=== PATIENT | female | born 1960 | race Caucasian/White ===

== ENCOUNTER 2019-08-19 14:21 | Outpatient (CLI) | payer OTHER, SELFPAY ==
--- NOTE | ~2019-08-19 | MM_ITS ---
EXAMINATION: MM screening zuhair BI w mehdi HISTORY: Screening mammogram TECHNIQUE: Craniocaudal and mediolateral oblique 3-D tomosynthesis images were obtained and synthetic 2-D images were generated. CAD analysis was submitted and interpreted. COMPARISON: 05/31/2018, 05/27/2017, 05/22/2016 bilateral digital screening mammogram examinations 06/11/2018 diagnostic right digital mammogram and limited right breast ultrasound BREAST PARENCHYMAL COMPOSITION: The breasts are heterogeneously dense, which may obscure small masses . FINDINGS: There is no evidence of suspicious mass, calcification, or architectural distortion to sugg est malignancy in either breast. There has been no suspicious interval change. IMPRESSION: 1. No mammographic evidence of malignancy. 2. Recommend routine screening mammography in one year. BI-RADS Category 1: Negative Reviewed, dictated and finalized at location A.
== END 2019-08-19 14:22 | disposition home or self-care (01) ==
LOC: ANHIMG 14:24
PROVIDERS: PCP Internal Medicine; Visit Provider Obstetrics & Gynecology
DX: Z12.31 Encounter for screening mammogram for malignant neoplasm of breast (principal)
CPT/HCPCS: 77063; 77067

== ENCOUNTER 2020-04-04 08:34 | Outpatient (NON) | payer OTHER, SELFPAY ==
[2020-04-04 21:57] LABS: SARS-CoV-2 RNA PCR Positive
== END 2020-04-04 08:35 ==
LOC: ANHCOVIDDT 08:35
PROVIDERS: Family Provider Internal Medicine; PCP Internal Medicine; Visit Provider Internal Medicine
DX: U07.1 COVID-19 (principal)
CPT/HCPCS: C9803; U0003; U0005

== ENCOUNTER 2020-09-18 16:02 | Outpatient (CLI) | payer OTHER, SELFPAY ==
--- NOTE | ~2020-09-18 | MM_ITS ---
EXAMINATION: MM screening zuhair BI w mehdi HISTORY: Screening mammogram, family history of breast cancer in her mother. TECHNIQUE: Craniocaudal and mediolateral oblique 3-D tomosynthesis images were obtained and synthetic 2-D images were generated. CAD analysis was submitted and interpreted. COMPARISON: 08/19/2019, 06/11/2018, 05/31/2018, 05/27/2017 BREAST PARENCHYMAL COMPOSITION: The breasts are heterogeneously dense, which may obscure small masses . FINDINGS: There is no evidence of suspicious mass, calcification, or architectural distortion to sugg est malignancy in either breast. There has been no suspicious interval change. IMPRESSION: 1. No mammographic evidence of malignancy. 2. Recommend routine screening mammography in one year. BI-RADS Category 1: Negative Reviewed, dictated and finalized at location A.
== END 2020-09-18 16:03 | disposition home or self-care (01) ==
LOC: ANHIMG 16:04
PROVIDERS: PCP Internal Medicine; Visit Provider Obstetrics & Gynecology
DX: Z12.31 Encounter for screening mammogram for malignant neoplasm of breast (principal)
CPT/HCPCS: 77063; 77067

== ENCOUNTER → 2021-02-27 02:51 | Outpatient (CLI) | payer OTHER, SELFPAY ==
[2021-02-27 18:29] LABS: SARS-CoV-2 RNA PCR Negative
== END ==
PROVIDERS: PCP Internal Medicine; Visit Provider Internal Medicine
DX: R68.89 Other general symptoms and signs (principal); Z20.822 Contact with and (suspected) exposure to COVID-19
CPT/HCPCS: C9803; U0003; U0005

== ENCOUNTER 2021-10-18 14:40 | Outpatient (CLI) | payer OTHER, SELFPAY ==
--- NOTE | ~2021-10-18 | MM_ITS ---
EXAMINATION: MM screening zuhair BI w mehdi HISTORY: Screening TECHNIQUE: Craniocaudal and mediolateral oblique 3-D tomosynthesis images were obtained and synthetic 2-D images were generated. CAD analysis was submitted and interpreted. COMPARISON: Comparison to multiple prior studies sequentially, with oldest reviewed study dated 11/2016. BREAST PARENCHYMAL COMPOSITION: The breasts are heterogeneously dense, which may obscure small masses . FINDINGS: There is no evidence of suspicious mass, calcification, or architectural distortion to sugg est malignancy in either breast. There has been no suspicious interval change. IMPRESSION: 1. No mammographic evidence of malignancy. 2. Recommend routine screening mammography in one year. BI-RADS Category 1: Negative Reviewed, dictated and finalized at location A.
== END 2021-10-18 14:41 | disposition home or self-care (01) ==
LOC: ANHIMG 14:42
PROVIDERS: PCP Internal Medicine; Visit Provider Obstetrics & Gynecology
DX: Z12.31 Encounter for screening mammogram for malignant neoplasm of breast (principal)
CPT/HCPCS: 77063; 77067

== ENCOUNTER 2023-01-12 14:55 | Outpatient (CLI) | payer OTHER, SELFPAY ==
--- NOTE | ~2023-01-12 | MM_ITS ---
EXAMINATION: MM screening zuhair BI w mehdi HISTORY: Screening mammogram, family history of breast cancer in her mother. TECHNIQUE: Craniocaudal and mediolateral oblique 3-D tomosynthesis images were obtained and synthetic 2-D images were generated. CAD analysis was submitted and interpreted. COMPARISON: 10/18/2021, 09/18/2020, 08/19/2019 BREAST PARENCHYMAL COMPOSITION: The breasts are heterogeneously dense, which may obscure small masses . FINDINGS: No suspicious mass, calcification, or architectural distortion are identified in either carlos ast to suggest malignancy. There has been no suspicious interval change. IMPRESSION: 1. No mammographic evidence of malignancy. 2. Recommend routine screening mammography in one year. BI-RADS Category 1: Negative Reviewed, dictated and finalized at location A.
== END 2023-01-12 14:56 | disposition home or self-care (01) ==
LOC: ANHIMG 14:57
PROVIDERS: PCP Family Medicine; Visit Provider Obstetrics & Gynecology
DX: Z12.31 Encounter for screening mammogram for malignant neoplasm of breast (principal)
CPT/HCPCS: 77063; 77067

== ENCOUNTER 2023-05-12 17:34 | Emergency (ER) | payer OTHER, SELFPAY ==
--- NOTE | ~2023-05-12 | XR_ITS ---
EXAMINATION: XR chest 2V Exam Date/Time: 05/12/2023 17:53 SET UP MECHANIC COIL WINDING MACHINES HISTORY: chest pain Comparison: None. RESULT: Lines, tubes, and devices: None. Lungs and pleura: Clear. Granulomatous calcifications. Cardiomediastinal silhouette: Stable. Calcified nodes. Other: No acute osseous or upper abdominal finding. IMPRESSION: No acute cardiopulmonary process. Reviewed, dictated and finalized at location K. UP MECHANIC COIL WINDING MACHINES
--- NOTE | 2023-05-12 17:34 | ECG_ITS ---
Measurements Intervals [place] Rate: 73 P: 43 NH: 147 QRS: 53 QRSD: 89 T: 1 QT: 369 QTc: 408 Interpretive Statements SINUS RHYTHM POSSIBLE LEFT ATRIAL ENLARGEMENT [-0.1mV P WAVE IN V1/V2] LOW QRS VOLTAGE IN PRECORDIAL LEADS [QRS DEFLECTION < 1.0 mV IN CHEST LEADS] NONSPECIFIC T-WAVE ABNORMALITY NO PREVIOUS ECG AVAILABLE FOR COMPARISON Electronically Signed On 05-13-2023 16:21:50 SEWER DIGGER by Jelena Ochoa M.D.
[2023-05-12 17:40] VITALS: BP 140/73; PULSE 81; RESP 18; TEMP 36.8; O2SAT 100
[2023-05-12 18:10] LABS: Basophils Percent Auto 0.5 % (0.2-1.2); Eosinophils Absolute Auto 0.2 K/mm3 (0-0.3); Eosinophils Percent Auto 2.9 % (0-4.4); Hematocrit 44.8 % (37.0-47.0); Hemoglobin 13.6 g/dL (12.0-15.0); Immature Granulocyte Absolute 0.02 K/mm3 (0.00-0.031); Immature Granulocyte Percent A 0.3 % (0-0.5); Lymphocytes Absolute Auto 2.78 K/mm3 (0.9-3.2); Lymphocytes Percent Auto 47.4 % (18.3-44.2); Mean Corpuscular HGB Conc 30.4 g/dl (32-36); Mean Corpuscular Hemoglobin 29.8 pg (26-34); Mean Corpuscular Volume 98.2 fl (80-100); Mean Platelet Volume 9.1 fl (7.4-10.4); Monocytes Absolute Auto 0.5 K/mm3 (0.1-0.6); Monocytes Percent Auto 7.7 % (2.6-8.5); Neutrophils Absolute Auto 2.4 K/mm3 (1.3-6.7); Neutrophils Percent Auto 41.2 % (45.5-73.1); Platelet Count Result 247 k/mm3 (150-375); Red Blood Count 4.56 M/mm3 (4.2-5.4); Red Cell Distribution Width 13.1 % (11.5-14.5); White Blood Count 5.9 K/mm3 (4.5-10.0)
[2023-05-12 18:23] LABS: Alanine Aminotransferase 20 U/L (6-35); Albumin Level 4.9 g/dL (3.5-5.1); Alkaline Phosphatase 64 U/L (38-126); Anion Gap 10 mmol/L (8-16); Aspartate Amino Transferase 27 U/L (14-36); Bilirubin,Total 0.4 mg/dL (0.2-1.3); Blood Urea Nitrogen 20 mg/dL (7-17); Carbon Dioxide 25 mmol/L (22-30); Chloride 104 mmol/L (98-107); Estimated CRCL calculation 73 ml/min; Estimated Glomerular Filt Rate > 60; Glucose 90 mg/dL (65-110); Lipase 72 U/L (23-300); Potassium 3.7 mmol/L (3.4-5.0); Sodium 139 mmol/L (137-145)
[2023-05-12 18:34] LABS: Troponin I < 0.012 ng/mL (0.000-0.034)
[2023-05-12] MEDS: ASPIRIN 81 MG CHEWABLE TABLET 324 MG PO (18:49)
[2023-05-12 18:53] LABS: INR 0.9; Prothrombin Time 11.9 Seconds (11.1-14.7)
[2023-05-12 18:54] LABS: Partial Thromboplastin Time 26.4 SECONDS (22.3-36.8)
[2023-05-12 18:55] VITALS: BP 95/64; PULSE 71; RESP 14; O2SAT 98
[2023-05-12 19:17] VITALS: BP 100/61; PULSE 65; PULSE 67; RESP 15; TEMP 36.4; O2SAT 100
[2023-05-12] MEDS: BELLADONNA ALK/PHENOB ELIX 10 ML, MAG HYDROX/ALUMINUM HYD/SIMETH 30 ML, LIDOCAINE HCL 2... PO (19:29)
--- NOTE | 2023-05-12 20:12 | ECG_ITS ---
Measurements Intervals [place] Rate: 55 P: 49 CA: 147 QRS: 57 QRSD: 92 T: 29 QT: 396 QTc: 380 Interpretive Statements SINUS BRADYCARDIA LOW QRS VOLTAGE IN PRECORDIAL LEADS [QRS DEFLECTION < 1.0 mV IN CHEST LEADS] COMPARED TO ECG 05/12/2023 17:38:12 SINUS BRADYCARDIA NOW PRESENT Electronically Signed On 05-13-2023 16:26:00 SAND CASTER APPRENTICE by Jelena Ochoa M.D.
[2023-05-12 20:53] LABS: Troponin I < 0.012 ng/mL (0.000-0.034)
[2023-05-12 20:56] VITALS: BP 111/71; PULSE 60; RESP 16; O2SAT 99
--- NOTE | 2023-05-12 21:00 | ED.GENADULT ---
HPI - General Adult General Chief complaint: Chest Pain Stated complaint: tightness in chest Time Seen by Provider: 05/12/23 19:10 History of Present Illness HPI narrative: Patient is 61-year-old female who presents emergency department with chief complaint of chest pain patient reports that she went out had lunch today at a restaurant [place] and reports that afterwards few hours later started having some discomfort in her epigastric area the patient states she got sweaty afterwards reports no pain radiating to her arm denies shortness of breath. The patient reports she has prior history of hyperlipidemia reports no prior history of cardiac disease Related Data Home Medications Medication Instructions Recorded Confirmed estradiol-norethindrone acet 0.5 1 tablet PO DAILY 09/01/19 05/12/23 mg-0.1 mg tablet rosuvastatin 10 mg tablet (Crestor) 10 mg PO DAILY 05/12/23 05/12/23 Allergies Allergy/AdvReac Type Severity Reaction Status Date / Time moxifloxacin AdvReac Severe C-DIFF Verified 05/12/23 17:41 Review of Systems Review of Systems: A 10 system review of systems was completed on the patient and is negative except for what is stated in the HPI. Nursing and ancillary documentation was reviewed. PMFSH Past Medical History Medical History DJD (degenerative joint disease) Surgical History Surgical History H/O section H/O colonoscopy Social History Social History Smoking status: Never smoker Second hand tobacco smoke exposure: Yes Alcohol intake: current Alcohol use details: Social Substance use: never Substance use type: does not use Lack of Transportation: No Lack of Food: Never True Current Housing: I Have Housing Concerned About Future Housing: No Difficulty Paying Gas/Electric Bills: No Difficulty Paying for Meds: No Currently Unemployed: No Education: High School Diploma/GED Difficulty w/ Childcare or Family Care: No Exam Narrative: GENERAL: Well-appearing, well-nourished, and in no acute distress. HEAD: Normocephalic, atraumatic. EYES: PERRLA and EOMI. ENT: Nares clear, no rhinorrhea or epistaxis. Mucous membranes moist. NECK: Supple. CHEST: Clear to auscultation. No respiratory distress. HEART: Regular rate and rhythm. No murmur heard. Normal peripheral pulses. ABDOMEN: Soft, nontender, nondistended, normal active bowel sounds. EXTREMITIES: Normal range of motion. No edema. SKIN: Warm, dry, no rash. NEURO: No focal deficits. Alert and oriented x3. PSYCH: Normal mood and affect. Course Vital Signs Vital signs: Vital Signs Temperature 36.8 C 05/12/23 17:40 Pulse Rate 81 05/12/23 17:40 Respiratory Rate 18 05/12/23 17:40 Blood Pressure 140/73 05/12/23 17:40 Pulse Oximetry 100 05/12/23 17:40 Temperature 36.4 C 05/12/23 19:17 Pulse Rate 60 05/12/23 20:56 Respiratory Rate 16 05/12/23 20:56 Blood Pressure 111/71 05/12/23 20:56 Pulse Oximetry 99 05/12/23 20:56 Oxygen Delivery Room Air 05/12/23 18:55 Medical Decision Making MDM Narrative Medical decision making narrative: Differential diagnosis includes ACS, gastroesophageal reflux disease, noncardiac chest pain, pneumothorax, EKG showed no acute abnormality Initial troponin was -3 hour delta troponin was negative. The patient's pains are the wound on the time of evaluation. Vital Signs Vital Signs: Vital Signs Temperature 36.8 C 05/12/23 17:40 Pulse Rate 81 05/12/23 17:40 Respiratory Rate 18 05/12/23 17:40 Blood Pressure 140/73 05/12/23 17:40 Pulse Oximetry 100 05/12/23 17:40 Temperature 36.4 C 05/12/23 19:17 Pulse Rate 60 05/12/23 20:56 Respiratory Rate 16 05/12/23 20:56 Blood Pressure 111/71 05/12/23 20:56 P
== END 2023-05-12 21:26 | disposition home or self-care (01) ==
PROVIDERS: Emergency Medicine; Emergency Provider Emergency Medicine; PCP Family Medicine
DX: R07.89 Other chest pain (principal); R94.31 Abnormal electrocardiogram [ECG] [EKG]; R00.1 Bradycardia, unspecified
CPT/HCPCS: 36415; 71046; 80053; 83690; 84484; 85025; 85610; 85730; 93005; 99284; A9270

== ENCOUNTER 2023-06-11 08:44 | Outpatient (CLI) | payer OTHER, SELFPAY ==
--- NOTE | 2023-06-11 08:47 | EST_ITS ---
Patient Info Name: Tanya Nguyen Age: 63 years : 1960 Gender: Female Ht: 64 in Wt: 176 lbs BSA: 1.92 m2 HR: 133 bpm BP: 123 / 64 mmHg Heart Rhythm: Tachycardia Technical Quality: Fair Exam Date: 06/11/2023 9:06 AM Exam Location: Echo Lab Exam Room: [facility]ESS [facility] Patient Status: Outpatient Admit Date: 06/11/2023 Staff Ordering Physician: Michael Yoo APRN Grinder Set Up Operator Thread: Maria Esther Daniels RDCS Attending Provider: DR. PATEL Referring Physician: Fredo BRODY; Exercise Technologist: Lorena Silverman CT Exercise Physician: Darren Patel DO Exam Type: CA stress echo Study Info Indications R07.89 - Other chest pain Treadmill exercise stress echocardiogram is performed. Summary 1. 1. Negative Jayden exercise stress test for ischemic ST changes by ECG criteria. 2. 2. Good functional capacity, achieving 7 METs of workload. 3. 3. Appropriate HR response to exercise. 4. 4. Appropriate HR recovery at 1 minute post exercise. 5. 5. Negative stress echocardiogram for ischemia by wall motion analysis. 6. 6. Patient informed of the above results. Stress Echo Findings Left Ventricle Appropriate increase in LV endocaridal thickening with systole. Appropriate augmentation of contractility with systole. No wall motion abnormality. Left Ventricle Normal LV systolic function, no wall motion abnormality. Protocol: Jayden Stress ECG Details Stage: REST Duration (min): 1 min : 8 sec Speed (mph): 0.0 Grade (%): 0 HR (bpm): 61 SBP (mmHg): 123 DBP (mmHg): 64 METS: --- Stage: REST Duration (min): 1 min : 24 sec Speed (mph): 0.0 Grade (%): 0 HR (bpm): 65 SBP (mmHg): 123 DBP (mmHg): 64 METS: --- Stage: REST Duration (min): 18 min : 9 sec Speed (mph): 0.0 Grade (%): 0 HR (bpm): 74 SBP (mmHg): 123 DBP (mmHg): 64 METS: --- Stage: STAGE 1 Duration (min): 1 min : 0 sec Speed (mph): 1.7 Grade (%): 10 HR (bpm): 99 SBP (mmHg): 123 DBP (mmHg): 64 METS: --- Stage: STAGE 1 Duration (min): 2 min : 0 sec Speed (mph): 1.7 Grade (%): 10 HR (bpm): 121 SBP (mmHg): 123 DBP (mmHg): 64 METS: --- Stage: STAGE 1 Duration (min): 3 min : 0 sec Speed (mph): 1.7 Grade (%): 10 HR (bpm): 123 SBP (mmHg): 143 DBP (mmHg): 79 METS: --- Stage: STAGE 2 Duration (min): 1 min : 0 sec Speed (mph): 2.5 Grade (%): 12 HR (bpm): 131 SBP (mmHg): 143 DBP (mmHg): 79 METS: --- Stage: STAGE 2 Duration (min): 2 min : 0 sec Speed (mph): 2.5 Grade (%): 12 HR (bpm): 142 SBP (mmHg): 166 DBP (mmHg): 87 METS: --- Stage: STAGE 2 Duration (min): 3 min : 0 sec Speed (mph): 2.5 Grade (%): 12 HR (bpm): 147 SBP (mmHg): 166 DBP (mmHg): 87 METS: --- Stage: STAGE 3 Duration (min): 0 min : 1 sec Speed (mph): 0.0 Grade (%): 0 HR (bpm): 147 SBP (mmHg): 166 DBP (mmHg): 87 METS: --- Stage: RECOVERY Duration (min): 0 min : 58 sec Speed (mph): 0.0 Grade (%): 0 HR (bpm): 109 SBP (mmHg): 171
== END 2023-06-11 08:45 | disposition home or self-care (01) ==
PROVIDERS: PCP Nurse Practitioner; Visit Provider Nurse Practitioner
DX: R07.89 Other chest pain (principal)
CPT/HCPCS: 93351

== ENCOUNTER 2023-10-22 16:45 | Outpatient (CLI) | payer OTHER, SELFPAY ==
--- NOTE | ~2023-10-22 | XR_ITS ---
Left Knee Technique: AP, lateral, and oblique views were obtained. Clinical History: Pain Findings: No fracture or dislocation is seen. Osseous alignment is anatomic. Joint spaces are preserv ed without degenerative or erosive change. There is mild chondrocalcinosis of the menisci. No joint e ffusion is seen. Impression: Mild chondrocalcinosis of the menisci. Reviewed, dictated and finalized at location M. Impression: Mild chondrocalcinosis of the menisci.
== END 2023-10-22 16:46 | disposition home or self-care (01) ==
LOC: ANHIMG 16:46
PROVIDERS: PCP Nurse Practitioner; Visit Provider Internal Medicine
DX: M25.562 Pain in left knee (principal)
CPT/HCPCS: 73562

== ENCOUNTER 2024-01-14 08:51 | Outpatient (CLI) | payer OTHER, SELFPAY ==
--- NOTE | ~2024-01-14 | MM_ITS ---
EXAMINATION: MM screening zuhair BI w mehdi HISTORY: Screening mammogram, family history of breast cancer in her mother. TECHNIQUE: Craniocaudal and mediolateral oblique 3-D tomosynthesis images were obtained and synthetic 2-D images were generated. CAD analysis was submitted and interpreted. COMPARISON: 01/12/2023, 10/18/2021, 09/18/2020 BREAST PARENCHYMAL COMPOSITION:Dense: The breasts are heterogeneously dense, which may obscure small masses. FINDINGS: No suspicious mass, calcification, or architectural distortion are identified in either carlos ast to suggest malignancy. There has been no suspicious interval change. IMPRESSION: No mammographic evidence of malignancy. Recommend routine screening mammography in one year. BI-RADS Category 1: Negative Reviewed, dictated and finalized at location .
== END 2024-01-14 08:52 | disposition home or self-care (01) ==
LOC: ANHIMG 08:52
PROVIDERS: PCP Nurse Practitioner; Visit Provider Obstetrics & Gynecology
DX: Z12.31 Encounter for screening mammogram for malignant neoplasm of breast (principal)
CPT/HCPCS: 77063; 77067

== ENCOUNTER 2024-07-15 12:03 | Outpatient (CLI) | payer OTHER, SELFPAY ==
--- NOTE | ~2024-07-15 | MMUS_ITS ---
EXAMINATION: MM diagnostic zuhair BI w mehdi, US breast LT limited HISTORY: Palpable left breast abnormality TECHNIQUE: Additional 3-D tomosynthesis images of the breasts were performed and synthetic 2-D images were generated. CAD analysis was submitted and interpreted. High resolution Limited left breast ultr asound was performed. COMPARISON: Comparison to multiple prior studies sequentially, with oldest reviewed study dated 06/11. BREAST PARENCHYMAL COMPOSITION: Dense: The breasts are heterogeneously dense, which may obscure small masses FINDINGS: MAMMOGRAPHIC FINDINGS: The right breast is stable without evidence for malignancy. There is a new irregular shaped mass with spiculated margins in the lower outer quadrant of the left breast, posterior third. There are associ ated pleomorphic calcifications. This corresponds the area of palpable concern. Additionally, there a re new enlarged lymph nodes in the left axilla at least one of which contains punctate calcifications . ULTRASOUND: Limited left breast ultrasound: At 5:00, 4 cm from the nipple is an irregular shaped hypoechoic mass with irregular margins, internal vascularity and mixed posterior attenuation. This mass measures 2.3 x 2 x 1.7 cm. There is an adjacent satellite nodule which is slightly irregular, oval shaped measurin g 8 mm. IMPRESSION: 1. New abnormal left breast mass with spiculated margins in the lower outer quadrant of the left semaj st posteriorly with associated pleomorphic calcifications. There is a corresponding 2.3 cm hypoechoic mass by ultrasound with adjacent 8 mm satellite nodule. Additionally, there is new lymphadenopathy o f the left axilla with at least one of the lymph nodes containing internal punctate calcifications. 2. Recommendation: Ultrasound-guided left breast biopsy recommended. Left axillary lymph node biopsy recommended. BI-RADS category 5, highly suggestive of malignancy. Reviewed, dictated and finalized at location A. IMPRESSION: 1. New abnormal left breast mass with spiculated margins in the lower outer ned drant of the left breast posteriorly with associated pleomorphic calcifications . There is a corresponding 2.3 cm hypoechoic mass by ultrasound with adjacent 8 mm satellite nodule. Additionally, there is new lymphadenopathy of the left ax illa with at least one of the lymph nodes containing internal punctate calcific ations. 2. Recommendation: Ultrasound-guided left breast biopsy recommended. Left axill franny lymph node biopsy recommended. BI-RADS category 5, highly suggestive of malignancy.
--- OUTSIDE RECORDS SUMMARY | 2024-07-16 13:02 | XMS_ITS | Clinical Summary ---
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 Gender Identity Not on file Sexual Orientation Not on file Plan of Treatment Health Maintenance Due Date Last Done Comments Hepatitis C Virus (HCV) Screening 1960 TdaP Immunization 1961 Pap Smear 1982 Cervical Cancer Screening (CCS) 1991 HPV/Cotest 1991 Colonoscopy 2006 Colorectal Cancer Screening 2006 Hepatitis B Immunization (3 of 3 - 19+ 3-dose series) 11/09/2007 07/02/2007, 05/11/2007 Cologuard 2011 Immunochemical Fecal Occult Blood 2011 Mammogram 2011 Pneumococcal Immunization (50+ years) (1 of 1 - PCV) 2011 Zoster Immunization (1 of 2) 2011 Influenza Immunization (#1) 11/15/20230 09/2019, 12/23/2018, 12/17/2017, Additional history exists SARS-COV-2 Immunization ( season) 2023 Respiratory Syncytial Virus (RSV) Immunization (Adult) (1 - 1-dose 75+ series) 02/13/2036 Meningococcal Immunization (ACWY) Aged Out No longer eligible based on patient's age to complete this topic Pneumococcal Immunization Combined Aged Out No longer eligible based on patient's age to complete this topic Rotavirus Immunization Aged Out No lo nger eligible based on patient's age to complete this topic
--- OUTSIDE RECORDS SUMMARY | 2024-07-16 13:02 | XMS_ITS | Encounter Summary ---
Author Organization [facility] Address [address] [place] [address] Care Team Providers Care Wheel Borer Name Role Phone Walter Husain MD Primary Care Provider [phone] Encounter Details Date Type Department Care Team (Late st Contact Info) Description 10/27/2017 Lab Requisition [facility] [address] [facility] [facility] [place] [address] Alisa Bell MD [address] [facility] [address] [place] [address] Social History Tobacco Use Types Packs/Day Years Used Date Smoking Tobacco: Never Assessed Comments Unknown Sex and Gender Information Value Date Recorded Sex Assigned at Not on file 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 Gender Identity Not on file Sexual Orientation Not on file documented as of this encounter Plan of Treatment Not on file documented as of this encounter Procedures Procedure Name Priority Date/Time Associated Diagnosis Comments DERMATOPATH TECHNICAL REPORT Routine 10/26/2017 12:00 AM CDT documented in this encounter Results * DERMATOPATH TECHNICAL REPORT (10/26/2017 12:00 AM CDT) Case Report Dermatopathology Report Case: [id number] Authorizing Provider: Alisa Bell MD Collected: 10/26/2017 12:00 AM Pathologist: Afia Oseguera MD Received: 10/27/2017 06:58 AM Specimen: Skin, right anterior hairline 10:09 AM CDT DERMATOPATHOLOGY LABORATORY Clinical History R/O nevus, irritated. 10:09 AM T DERMATOPATHOLOGY LABORATORY Gross Description Specimen A: Received is one formalin filled container labeled with the patient's name and designated right anterior hairline. The specimen consists of a shave measuring [id number]. Jar 0. [facility] Dermatopathology Laboratory performed the technical component only. 10:09 AM CDT DERMATOPATHOLOGY LABORATORY Embedded Images 10:09 AM T DERMATOPATHOLOGY LABORATORY DISCLAIMER An external and internal positive and negative controls are appropriate for the histochemical, immunohistochemical and immunofluorescence stain(s) in this case (if any), except where stated explicitly. The performance characteristics of the stain(s) cited in this report were developed and its performance characteristic determined by the Dermatopathology Laboratory at [facility]. These tests need not be, and therefore are not, approved by the [place] Food and Drug Administration. The tests are used for clinical purposes. 10:09 AM [facility] DERMATOPATHOLOGY LABORATORY Pathology/Cytolog y TISSUE SPECIMEN FROM SKIN / Unknown 10/26/2017 10/27/2017 6:58 AM CDT Alisa Bell MD LAB - PATHOLOGY/CYTOLOGY OR DERABLES Final Result DERMATOPATHOLOGY LABORATORY [facility] - Department of Dermatology [address] [place] [address], 5th Floor Lab [address] [phone] documented in this encounter Visit Diagnoses Not on filedocumented in this encounter Care Teams Wheel Borer Relationship Specialty Start Date End Date Walter Husain MD [address] [place] [id number] PCP - General Internal Medicine 12/03/16 documented as of this encounter
--- OUTSIDE RECORDS SUMMARY | 2024-07-16 13:02 | XMS_ITS | Clinical Summary ---
Author Organization [facility] Address [address] [place] [address] Care Team Providers Care Manager Operations And Procurement Name Role Phone Walter Husain MD Primary Care Provider [phone] Source Comments [facility],non-owned Affiliates and Associated Physician Practices is amultiple site organization consisting of ambulatory clinics and hospital sitesin [place], [place], [place] and [place]. This disclosure is being madepursuant to the Care Everywhere program and may not contain all information available regarding this patient. Last updated 17.[facility] Allergies No known active allergies Immunizations Immunization Administration Dates Next Due INFLUENZA VACCINE, QUADR. 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 Gender Identity Not on file Sexual Orientation Not on file Plan of Treatment Health Maintenance Due Date Last Done Comments COLOGUARD (AGES 45-75) - COL ON CA SCREENING 1961 COLON MONITORING 1961 COLONOSCOPY - COLON CA SCREENING 1961 CT COLONOGRAPHY - COLON CA SCREENING 1961 Colorectal Cancer Screening 1961 FIT - COLON CA SCREENING 1961 FLEX SIG - COLON CA SCREENING 1961 LIPID TESTING 1961 MAMMOGRAM 1961 HIV SCREENING 02/13/1976 HEPATITIS C SCREENING 02/08/1979 DTAP/TDAP/TD VACCINES (1 - Tdap) 02/13/1980 PNEUMOCOCCAL VACCINE 50+ (1 of 1 - PCV) 2011 ZOSTER VACCINE (1 of 2) 2011 COVID-19 VACCINE (1 - 2023-2 5 season) 2023 DEPRESSION SCREENING 03/16/2024 INFLUENZA VACCINE (Season Ended) 2024 12/04/19 17 Respiratory Syncytial Virus (RSV) Vaccine Pt: or over 60 yrs (1 - 1-dose 75+ series) 02/13/2036 HEPATITIS B VACCINE Aged Out No longe r eligible based on patient's age to complete this topic HIB VACCINE Aged Out No longer eligi ble based on patient's age to complete this topic HPV VACCINE Aged Out No longer eligi ble based on patient's age to complete this topic MENINGOCOCCAL (Group B) VACC INE SHARED DECISION-MAKING Aged Out No longer eligibl e based on patient's age to complete this topic MENINGOCOCCAL GROUPS A/C/Y/W VACCINE Aged Out No longer eligible b ased on patient's age to complete this topic Insurance [employer] [facility] Address: [facility] [id number] [place] [address] [employer] [facility] [place] [place]: [address] [address] [facility] Address: [address] [address] Care Teams Manager Operations And Procurement Relationship Specialty Start Date End Date Walter Husain MD [address] [place] [phone] PCP - General Internal Medicine 12/03/16
--- OUTSIDE RECORDS SUMMARY | 2024-07-16 13:02 | XMS_ITS | Encounter Summary ---
Author Organization [facility] Address [address] [facility] [place] [address] Care Team Providers Care Forms Analysis Manager Name Role Phone Walter Husain MD Primary Care Provider [phone] Encounter Details Date Type Department Care Team (Late st Contact Info) Description 12/22/2018 Lab Requisition [facility] Lab [address] [facility], [facility] [place] [address] Alisa Bell MD [address] 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 Gender Identity Not on file Sexual Orientation Not on file documented as of this encounter Plan of Treatment Not on file documented as of this encounter Procedures Procedure Name Priority Date/Time Associated Diagnosis Comments DERMATOPATHOLOGY Routine 12/21/2018 12:0 0 AM CDT documented in this encounter Results * DERMATOPATHOLOGY (12/21/2018 12:00 AM CDT) Case Report Dermatopathology Report Case: [id number] Authorizing Provider: Alisa Bell MD Collected: 12/21/2018 12:00 AM Ordering Location: [facility] Received: 12/22/2018 06:56 AM Pathologist: Robert Peters MD Specimen: Skin, mid back 4:37 PM CDT DERMATOPATHOLOGY LABORATORY Final Diagnosis Specimen A. SKIN, mid back: EPIDERMOID CYST (L72.0) 4:37 PM CDT DERMATOPATHOLOGY LABORATORY Clinical History R/O cyst, irritated. 4:37 PM CDT DERMATOPATHOLOGY LABORATORY Gross Description Specimen A: Received is one formalin filled container labeled with the patient's name and designated mid back. The specimen consists of a [id number] excision, bisected. Jar 0. 4:37 PM CDT DERMATOPATHOLOGY LABORATORY Microscopic Description Specimen A. SKIN, mid back: Within the dermis, there is a space lined by epithelium that resembles normal epidermis and the infundibular portion of the hair follicle. 4:37 PM CDT DERMATOPATHOLOGY LABORATORY Disclaimer An external and internal positive and negative controls are appropriate for the histochemical, immunohistochemical and immunofluorescence stain(s) in this case (if any), except where stated explicitly. The performance characteristics of the stain(s) cited in this report were developed and its performance characteristic determined by the Dermatopathology Laboratory at [facility], directed by Dr. Goldie Peters. These tests need not be, and therefore are not, approved by the [place] Food and Drug Administration. The tests are used for clinical purposes. Billing Codes Specimen Charges Stain Charges 68701 1 4:37 PM CDT DERMATOPATHOLOGY LABORATORY Embedded Images 4:37 PM CDT DERMATOPATHOLOGY LABORATORY Pathology/Cytolog y TISSUE SPECIMEN FROM SKIN / Unknown 12/21/2018 12/22/2018 6:56 AM CDT Alisa Bell MD LAB - PATHOLOGY/CYTOLOGY OR DERABLES Final Result DERMATOPATHOLOGY LABORATORY [facility] - Department of Dermatology [address] [place] [address], [address]th [address] [phone] documented in this encounter Visit Diagnoses Not on filedocumented in this encounter Care Teams Forms Analysis Manager Relationship Specialty Start Date End Date Walter Husain MD [address] [place] [address] PCP - General Internal Medicine 12/03/16 documented as of this encounter
== END 2024-07-15 12:04 | disposition home or self-care (01) ==
LOC: ANHIMG 12:06
PROVIDERS: PCP Internal Medicine; Visit Provider Obstetrics & Gynecology
DX: R92.8 Other abnormal and inconclusive findings on diagnostic imaging of breast (principal)
CPT/HCPCS: 76642; 77062; 77066; G0279

== ENCOUNTER 2024-08-05 07:41 | Outpatient (CLI) | payer OTHER, SELFPAY ==
--- NOTE | ~2024-08-05 | MMUS_ITS ---
US breast biopsy LT w image, MM post biopsy diagnostic LT, US_BXSTAXLIMG_US EXAMINATION: US GUIDED NEEDLE BIOPSY WITH VACUUM ASSISTANCE DATE: 08/05/2024 10:55 CDT INDICATION: Abnormal left breast mass seen. Enlarged left axillary lymph nodes. Ultrasound-guided co re biopsy is requested to evaluate for malignancy. BREAST PARENCHYMAL COMPOSITION: Dense: The breasts are heterogeneously dense, which may obscure small masses TECHNIQUE AND FINDINGS: The risks and potential benefits of the procedure were discussed with the patient, and written inform ed consent was obtained. After sterile preparation of the left breast, 1% lidocaine was utilized for local anesthesia. 1% lidocaine with epinephrine was used for deep anesthesia. Left breast: A 10G vacuum-assisted biopsy gun needle was advanced through to the outer edge of the re gion of interest from a inferiorly approach utilizing sonographic guidance. A total of 4 tissue core samples were obtained through the lesion. An Inrad tissue marker clip was then placed at the biopsy site. Hemostasis was achieved. Left axilla: A 10G vacuum-assisted biopsy gun needle was advanced through to the outer edge of the re gion of interest from an axillary approach utilizing sonographic guidance. A total of three tissue c ore samples were obtained through the lesion. An Inrad tissue marker clip was then placed at the bio psy site. Hemostasis was achieved. The patient tolerated procedure well and there was no evidence of immediate complication. The patien t was given verbal instructions partly is from the department. Left breast mammograms to document ti ssue marker clip placement. The tissue samples were submitted to surgical pathology for histologic an alysis. IMPRESSION: 1. Successful ultrasound-guided vacuum-assisted biopsy of left breast and axillary masses with post procedure mammogram for marker placement. Please refer to pathology report for histologic analysis. Reviewed, dictated and finalized at location B. IMPRESSION: 1. Successful ultrasound-guided vacuum-assisted biopsy of left breast and axil usman masses with post procedure mammogram for marker placement. Please refer to pathology report for histologic analysis. IMPRESSION: 1. Successful ultrasound-guided vacuum-assisted biopsy of left breast and axil usman masses with post procedure mammogram for marker placement. Please refer to pathology report for histologic analysis.
--- OUTSIDE RECORDS SUMMARY | 2024-08-05 07:46 | XMS_ITS | Clinical Summary ---
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
--- OUTSIDE RECORDS SUMMARY | 2024-08-05 07:46 | XMS_ITS | Encounter Summary ---
Author Organization [facility] Address [address] [facility] [place] [address] Care Team Providers Care Product Test Specialist Name Role Phone Walter Husain MD Primary Care Provider [phone] Encounter Details Date Type Department Care Team (Late st Contact Info) Description 10/27/2017 Lab Requisition [facility] [address] [facility], [place] [address] Alisa Bell MD [address] [facility] 3 [place] [address] Social History Tobacco Use Types Packs/Day Years Used Date Smoking Tobacco: Never Assessed Comments Unknown Sex and Gender Information Value Date Recorded Sex Assigned at Not on file 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 Gender Identity Not on file Sexual Orientation Not on file documented as of this encounter Plan of Treatment Not on file documented as of this encounter Procedures Procedure Name Priority Date/Time Associated Diagnosis Comments DERMATOPATH TECHNICAL REPORT Routine 10/26/2017 12:00 AM CDT documented in this encounter Results * DERMATOPATH TECHNICAL REPORT (10/26/2017 12:00 AM CDT) Case Report Dermatopathology Report Case: [id number] Authorizing Provider: Alisa Bell MD Collected: 10/26/2017 12:00 AM Pathologist: Afia Oseguera MD Received: 10/27/2017 06:58 AM Specimen: Skin, right anterior hairline 10:09 AM CDT DERMATOPATHOLOGY LABORATORY Clinical History R/O nevus, irritated. 10:09 AM CDT DERMATOPATHOLOGY LABORATORY Gross Description Specimen A: Received is one formalin filled container labeled with the patient's name and designated right anterior hairline. The specimen consists of a shave measuring [id number]. Jar 0. [facility] Dermatopathology Laboratory performed the technical component only. 10:09 AM CDT DERMATOPATHOLOGY LABORATORY Embedded Images 10:09 AM CDT DERMATOPATHOLOGY LABORATORY DISCLAIMER An external and internal positive and negative controls are appropriate for the histochemical, immunohistochemical and immunofluorescence stain(s) in this case (if any), except where stated explicitly. The performance characteristics of the stain(s) cited in this report were developed and its performance characteristic determined by the Dermatopathology Laboratory at [facility]. These tests need not be, and therefore are not, approved by the [place] Food and Drug Administration. The tests are used for clinical purposes. 10:09 AM T DERMATOPATHOLOGY LABORATORY at 1009 CDT Pathology/Cytolog y TISSUE SPECIMEN FROM SKIN / Unknown 10/26/2017 10/27/2017 6:58 AM CDT Alisa Bell MD LAB - PATHOLOGY/CYTOLOGY OR DERABLES Final Result DERMATOPATHOLOGY LABORATORY [facility] - Department of Dermatology [address] [place] [address], 5th Floor Lab [address] [phone] documented in this encounter Visit Diagnoses Not on filedocumented in this encounter Care Teams Product Test Specialist Relationship Specialty Start Date End Date Walter Husain MD [address] [place] [address] PCP - General Internal Medicine 12/03/16 documented as of this encounter
--- OUTSIDE RECORDS SUMMARY | 2024-08-05 07:46 | XMS_ITS | Clinical Summary ---
Author Organization [facility] Address [address] [facility] [place] [address] Care Team Providers Care Soldering Technician Name Role Phone Walter Husain MD Primary Care Provider [phone] Source Comments [facility],non-owned Affiliates and Associated Physician Practices is amultiple site organization consisting of ambulatory clinics and hospital sitesin [place], [place], [place] and [place]. This disclosure is being madepursuant to the Care Everywhere program and may not contain all information available regarding this patient. Last updated 17.[facility] Allergies No known active allergies Immunizations Immunization Administration Dates Next Due INFLUENZA VACCINE, QUADR. 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
--- OUTSIDE RECORDS SUMMARY | 2024-08-05 07:46 | XMS_ITS | Encounter Summary ---
Author Organization [facility] Address [address] [facility] [place] [address] Care Team Providers Care Roll Shop Supervisor Name Role Phone Walter Husain MD Primary Care Provider Encounter Details Date Type Department Care Team (Late st Contact Info) Description 12/22/2018 Lab Requisition [facility] Lab [address] [facility], [facility] [place] [address] Alisa Bell MD [address] [facility] 3 [place] [address] Social History Tobacco Use Types Packs/Day Years Used Date Smoking Tobacco: Never Assessed Comments Unknown Sex and Gender Information Value Date Recorded Sex Assigned at Not on file 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 Gender Identity Not on file Sexual Orientation Not on file documented as of this encounter Plan of Treatment Not on file documented as of this encounter Procedures Procedure Name Priority Date/Time Associated Diagnosis Comments DERMATOPATHOLOGY Routine 12/21/2018 12:0 0 AM CDT documented in this encounter Results * DERMATOPATHOLOGY (12/21/2018 12:00 AM CDT) Case Report Dermatopathology Report Case: [id number] Authorizing Provider: Alisa Bell MD Collected: 12/21/2018 12:00 AM Ordering Location: [facility] Received: 12/22/2018 06:56 AM Pathologist: Robert Peters MD Specimen: Skin, mid back 4:37 PM CDT DERMATOPATHOLOGY LABORATORY Final Diagnosis Specimen A. SKIN, mid back: EPIDERMOID CYST (L72.0) 4:37 PM CDT DERMATOPATHOLOGY LABORATORY at 1637 CDT Clinical History R/O cyst, irritated. 4:37 PM CDT DERMATOPATHOLOGY LABORATORY Gross Description Specimen A: Received is one formalin filled container labeled with the patient's name and designated mid back. The specimen consists of a [id number] excision, bisected. Jar 0. 4:37 PM CDT [...] by the Dermatopathology Laboratory at [facility], directed by Dr. Goldie Peters. These tests need not be, and therefore are not, approved by the [place] Food and Drug Administration. The tests are used for clinical purposes. Billing Codes Specimen Charges Stain Charges 11438 1 4:37 PM CDT DERMATOPATHOLOGY LABORATORY Embedded Images 4:37 PM CDT DERMATOPATHOLOGY LABORATORY Pathology/Cytolog y TISSUE SPECIMEN FROM SKIN / Unknown 12/21/2018 12/22/2018 6:56 AM CDT Alisa Bell MD LAB - PATHOLOGY/CYTOLOGY OR DERABLES Final Result DERMATOPATHOLOGY LABORATORY [facility] - Department of Dermatology [address] [place] [address], 5th Floor [address] [phone] documented in this encounter Visit Diagnoses Not on filedocumented in this encounter Care Teams Roll Shop Supervisor Relationship Specialty Start Date End Date Walter Husain MD [address] [place] [address] PCP - General Internal Medicine 12/03/16 documented as of this encounter
== END 2024-08-05 07:42 | disposition home or self-care (01) ==
LOC: ANHIMG 07:44
PROVIDERS: PCP Internal Medicine; Referring Provider Obstetrics & Gynecology; Visit Provider Surgery
DX: N63.23 Unspecified lump in the left breast, lower outer quadrant (principal); R92.8 Other abnormal and inconclusive findings on diagnostic imaging of breast; R59.0 Localized enlarged lymph nodes
CPT/HCPCS: 19083; 20999; 76942; 77065; 88305; 88360; A4648

== ENCOUNTER 2024-08-16 15:38 | Outpatient (CLI) | payer OTHER, SELFPAY ==
--- OUTSIDE RECORDS SUMMARY | 2024-08-16 15:40 | XMS_ITS | Clinical Summary ---
Author Organization [facility] Address [address] [place] [phone] Phone Care Team Providers Care Emergency Communications Operator Name Role Phone Unavailable Primary Care Provider Unavailabl e Allergies Active Allergy Reactions Criticality Noted Date Comments Moxifloxacin Diarrhea Low 08/16/2024 Pt gets c-diff Medications diclofenac sodium (VOLTAREN) 50 mg Tablet, Delayed Release (E.C.) Take 50 mg by mouth. Active multivit,iron,mi nerals/lutein (CENTRUM SILVER ULTRA WOMEN'S ORAL) Active rosuvastatin 10 mg Capsule, Sprinkle Active Ca Elr-R5-O-Mgox-st roni-sod bor 250 mg-1,000 unit-25 mcg Tablet Active BERBERINE CHLORIDE ORAL Take by mouth. Active Active Problems No known active problems Encounters Date Type Department Care Team Description 08/16/2024 3:00 PM CDT Office Visit [facility] Oncology and Hematology - [place] [address] [place] [address] Gilbert Torres MD Malignant neoplasm of lower-outer quadrant of left breast of female, estrogen receptor positive (CMS/HCC) (Primary Dx) from Last 3 Months Family History Medical History Relation Name Comments High Cholesterol Father Hakeem Mari Breast Cancer Maternal Aunt 1 Blanka Cheema Breast Cancer Maternal Aunt 2 Deni Breast Cancer Maternal Cousin Deni Breast Cancer Mother DJ Deni Lung Cancer Mother DJ Deni High Cholesterol Paternal Aunt Devi Herrera Lung Cancer Paternal Grandfather Chalino Mari High Cholesterol Paternal Uncle Danish Kamaljit Relation Name Status Comments Father Hakeem Mari Alive Maternal Aunt 1 Blanka Cheema Alive Maternal Aunt 2 Deni Alive Maternal Cousin Deni Alive Mother DJ Deni Alive Paternal Aunt Devi Herrera Alive Paternal Grandfather Chalino Mari Alive Paternal Uncle Danish Mari Alive Social History Tobacco Use Types Packs/Day Years Used Date Smoking Tobacco: Never Smokeless Tobacco: Never Alcohol Use Standard Drinks/Week Comments Yes 4 (1 standard drink = 0.6 oz pur e alcohol) occasional Comments Unknown Sex and Gender Information Value Date Recorded Sex Assigned at Not on file Legal Sex Female 2:54 PM CDT Gender Identity Not on file Sexual Orientation Not on file Last Filed Vital Signs Vital Sign Reading Time Taken Comments Blood Pressure 145/89 08/16/2024 2:39 PM CDT Pulse 80 08/16/2024 2:37 PM CDT Temperature 36.7 C (98 F) 08/16/2024 2:37 PM CDT Respiratory Rate 16 08/16/2024 2:37 PM CDT Oxygen Saturation 98% 08/16/2024 2:37 PM CDT Inhaled Oxygen Concentration - - Weight 82.8 kg (182 lb 9.6 oz) 08/16/2024 2:37 P M CDT Height 162.6 cm (5' 4) 08/16/2024 2:37 PM CDT Body Mass Index 31.34 08/16/2024 2:37 PM CDT Plan of Treatment Upcoming Encounters Date Type Department Care Team (Late st Contact Info) Description 09/01/2024 4:30 PM CDT Telephone Check Up [facility] Oncology and Hematology - [place] [address] [facility] [address] [place] [address] Gilbert Torres MD [address] [facility] [address] [place] [address] Health Maintenance Due Date Last Done Comments Pre-Diabetes and Diabetes Screening 1961 DTAP/TDAP/TD VACCINES (1 - Tdap) 02/13/1980 HPV/Cotest (21-29) 1982 CERVICAL CANCER SCREENING 1991 HPV/Cotest (30-65) 1991 PAP SMEAR 1991 BREAST CANCER SCREENING 2001 COLORECTAL SCREENING 2006 Colorectal Cancer Screening 2006 FIT-DNA Q 3 years 2006 FIT/FOBT Q 1 year 2006 Flex Sig/CT Colonography Q 5 years 2006 ZOSTER VACCINE (1 of 2) 2011 INFLUENZA VACCINE (#1) 2023 12/03/2016 Preventative Visit- Commercial 03/16/2024 RSV VACCINE (60+ or ) (1 - 1-dose 75+ series) 02/13/2036 Insurance [id number] BENEFIT PLANS Member Subscriber Plan / Payer (Ef fective 2020-Present) Name:Tanya Nguyen Relation to Subscriber:Self Name:Tanya Nguyen Payer ID:Not on file Group ID:Not on file Type:MiName Address: [facility] [id number] [place] [id number]
--- OUTSIDE RECORDS SUMMARY | 2024-08-16 15:40 | XMS_ITS | Clinical Summary ---
Author Organization [facility] Address [address] [facility] [address] Care Team Providers Care Manager Line Name Role Phone Walter Husain MD Primary Care Provider [phone] Source Comments [facility],non-owned Affiliates and Associated Physician Practices is amultiple site organization consisting of ambulatory clinics and hospital sitesin [place], [place], [place] and [place]. This disclosure is being madepursuant to the Care Everywhere program and may not contain all information available regarding this patient. Last updated 17.[facility] Allergies No known active allergies Immunizations Immunization Administration Dates Next Due INFLUENZA VACCINE, QUADR. 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 Gender Identity Not on file Sexual Orientation [...] SCREENING 1961 LIPID TESTING 1961 MAMMOGRAM 1961 PAP SMEAR 1961 HIV SCREENING 02/13/1976 HEPATITIS C SCREENING [...] patient's age to [place] [address] [employer] SELF PAY NO INSURANCE Member Subscriber Plan / Payer (Ef fective for All Dates) Name:Yolanda Nguyen Member ID:Not on file Relation to Subscriber:Not on file Name:YOLANDA NGUYEN Subscriber ID:Not on file (Home) Address: [address] [place] [phone] Payer ID:Not on file Group ID:Not on file Type:Self Pay Address: [place], [place] [facility] Address: [address] [address] [facility] Address: [address] [address] Care Teams Manager Line Relationship Specialty Start Date End Date Walter Husain MD [address] [place] [address] PCP - General Internal Medicine 12/03/16
--- OUTSIDE RECORDS SUMMARY | 2024-08-16 15:40 | XMS_ITS | Clinical Summary ---
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
--- OUTSIDE RECORDS SUMMARY | 2024-08-16 15:40 | XMS_ITS | Encounter Summary ---
Author Organization [facility] Address [address] [facility] [place] [address] Care Team Providers Care Field Service Technician Poultry Name Role Phone Walter Husain MD Primary Care Provider [phone] Encounter Details Date Type Department Care Team (Late st Contact Info) Description 12/22/2018 Lab Requisition [facility] Care [facility] Lab [address] [facility], [facility] [place] [address] Alisa Bell MD [address] [facility] 3 [place] [address] Social History Tobacco Use Types Packs/Day Years Used Date Smoking Tobacco: Never Assessed Comments Unknown Sex and Gender Information Value Date Recorded Sex Assigned at Not on file 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 The specimen consists of a [id number] excision, bisected. Jar 0. 4:37 PM CDT [...] characteristic determined by the Dermatopathology Laboratory at [facility], directed by Dr. Goldie Peters. These tests need not be, and therefore are not, approved by the [place] Food and Drug Administration. The tests are used for clinical purposes. Billing Codes Specimen Charges Stain Charges 04926 1 4:37 PM CDT DERMATOPATHOLOGY LABORATORY Embedded Images 4:37 PM CDT DERMATOPATHOLOGY LABORATORY Pathology/Cytolog y TISSUE SPECIMEN FROM SKIN / Unknown 12/21/2018 12/22/2018 6:56 AM CDT Alisa Bell MD LAB - PATHOLOGY/CYTOLOGY OR DERABLES Final Result DERMATOPATHOLOGY LABORATORY [facility] - Department of Dermatology [address] [place] [address], [address]th [address] [phone] documented in this encounter Visit Diagnoses Not on filedocumented in this encounter Care Teams Field Service Technician Poultry Relationship Specialty Start Date End Date Walter Husain MD [address] [place] [phone] PCP - General Internal Medicine 12/03/16 documented as of this encounter
--- OUTSIDE RECORDS SUMMARY | 2024-08-16 15:40 | XMS_ITS | Encounter Summary ---
Author Organization [facility] Address [address] [facility] [place] [address] Care Team Providers Care Shafting Cleaner Name Role Phone Walter Husain MD Primary Care Provider [phone] Encounter Details Date Type Department Care Team (Late st Contact Info) Description 10/27/2017 Lab Requisition [facility] [address] 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 Jar 0. [facility] Dermatopathology Laboratory performed the technical component only. [...] by the Dermatopathology Laboratory at [facility]. These tests need not be, and therefore are not, approved by the [place] Food and Drug Administration. The tests are used for clinical purposes. 10:09 AM T DERMATOPATHOLOGY LABORATORY at 1009 CDT Pathology/Cytolog y TISSUE SPECIMEN FROM SKIN / Unknown 10/26/2017 10/27/2017 6:58 AM CDT Alisa Bell MD LAB - PATHOLOGY/CYTOLOGY OR DERABLES Final Result DERMATOPATHOLOGY LABORATORY [facility] - Department of Dermatology [address] [place] [address], 5th Floor Lab [address] [phone] documented in this encounter Visit Diagnoses Not on filedocumented in this encounter Care Teams Shafting Cleaner Relationship Specialty Start Date End Date Walter Husain MD [address] [place] [phone] PCP - General Internal Medicine 12/03/16 documented as of this encounter
--- OUTSIDE RECORDS SUMMARY | 2024-08-16 15:40 | XMS_ITS | Encounter Summary ---
Author Organization [facility] Address [facility] [id number] [place] [address] Care Team Providers Care Administrative Services Specialist Name Role Phone Unavailable Primary Care Provider Unavailabl e Reason for Referral * PET Scan (Routine) - Open Specialty Diagnoses / Procedures Referred By Contac t Referred To Contact Diagnoses Malignant neoplasm of lower-outer quadrant of left breast of female, estrogen receptor positive (CMS/HCC) Procedures PET TUMOR OR INFECTION IMG W CT SKB Gilbert Craig MD [address] [address] Phone: tel: fax: [place] [phone] Referral ID Status Reason Start Date Expiration Date V isits Requested Visits Authorized [id number] Open [facility] CTS 08/16/2024 09/16/2025 1 1 * Eval and Treat (Routine) - Open Specialty Diagnoses / Procedures Referred By Contac t Referred To Contact Oncology Diagnoses Malignant neoplasm of lower-outer quadrant of left breast of female, estrogen receptor positive (CMS/HCC) Procedures [place] OFFICE/OUTPATIENT ESTABLISHED MOD MDM 30 MIN [place] OFFICE/OUTPATIENT NEW MODERATE MDM 45 MINUTES Gilbert Torres MD [address] [place] [phone] Phone: tel: fax: Referral ID Status Reason Start Date Expiration Date Visits Re quested Visits Authorized [id number] Open 08/16/2024 08/17/2025 1 1 * Echocardiography (Routine) - Open Specialty Diagnoses / Procedures Referred By Rodrigo t Referred To Contact Diagnoses Malignant neoplasm of lower-outer quadrant of left breast of female, estrogen receptor positive (CMS/HCC) Procedures ECHO COMPLETE - CONTRAST AND STRAIN IF INDICATED ECHO COMPLETE - CONTRAST AND STRAIN IF INDICATED [place] ECHO TTHRC R-T 2D W/WOM-MODE COMPL SPEC&COLR D [place] MYOCRD STRAIN IMG SPECKLE TRCK ASSMT MYOCRD [facility] [place] TTE W OR WO FOL WCON,DOPPLER Gilbert Torres MD [address] [place] [phone] Phone: tel: fax: Referral ID Status Reason Start Date Expiration Date Visits Re quested Visits Authorized [id number] Open 08/16/2024 09/16/2025 1 1 Encounter Details Date Type Department Care Team (Late st Contact Info) Description 08/16/2024 3:00 PM CDT Office Visit [facility] Oncology and Hematology - [address] [address] Gilbert Torres MD [address] [place] [phone] Malignant neoplasm of lower-outer quadrant of left breast of female, estrogen receptor positive (CMS/HCC) (Primary Dx) Social History Tobacco Use Types Packs/Day Years [...] on file documented as of this encounter Last Filed Vital Signs Vital Sign Reading [...] Mass Index 31.34 08/16/2024 2:37 PM CDT documented in this encounter Plan of Treatment Upcoming Encounters Date Type Department Care Team (Late st Contact Info) Description 09/01/2024 4:30 PM CDT Telephone Check Up [facility] Oncology and Hematology [facility] [address] [facility] [address] [place] [address] Gilbert Torres MD [address] [facility] [address] [place] [address] Scheduled Orders Name Type Priority Associated Diagnoses Order Schedule ECHO COMPLETE - CONTRAST AND STRAIN IF INDICATED Echocardiogram Routine Malignant neoplasm of lower-outer quadrant of left breast of female, estrogen receptor positive (CMS/HCC) 1 Occurrences starting 08/16/2024 until 10/16/2025 PET TUMOR OR INFECTION IMG W CT SKB [facility] Imaging Routine Malignant neoplasm of lower-outer quadrant of left breast of female, estrogen receptor positive (CMS/HCC) Expected: 08/17/2024, Expires: 08/16/2025 CBC WITH DIFFERENTIAL Lab Stat Malignant neoplasm of lower-outer quadrant of left breast of female, estrogen receptor positive (CMS/HCC) Expected: 08/16/2024, Expires: 08/16/2025 COMPREHENSIVE METABOLIC PANEL Lab Stat Malignant neoplasm of lower-outer quadrant of left breast of female, estrogen receptor positive (CMS/HCC) Expected: 08/16/2024, Expires: 08/16/2025 CANCER ANTIGEN 15-3 Lab Routine Malignant neoplasm of lower-outer quadrant of left breast of female, estrogen receptor positive (CMS/HCC) Expected: 08/16/2024, Expires: 08/16/2025 MISCELLANEOUS LAB TEST Lab Routine Malignant neoplasm of lower-outer quadrant of left breast of female, estrogen receptor positive (CMS/HCC) Expected: 08/16/2024, Expires: 08/16/2025 Scheduled Referrals Name Type Priority Associated Diagnoses Orde r Schedule AMB REFERRAL TO [employer] Outpatient Referral Routine Malignant neoplasm of lower-outer quadrant of left breast of female, estrogen receptor positive (CMS/HCC) Ordered: 08/16/2024 documented as of this encounter Visit Diagnoses Diagnosis Malignant neoplasm of lower-outer quadrant of left breast of female, estrogen receptor positive (CMS/HCC)- Primary documented in this encounter
[2024-08-16 15:54] LABS: Basophils Percent Auto 0.7 % (0.2-1.2); Eosinophils Absolute Auto 0.2 K/mm3 (0-0.3); Eosinophils Percent Auto 2.8 % (0-4.4); Immature Granulocyte Absolute 0.04 K/mm3 (0.00-0.031); Immature Granulocyte Percent A 0.7 % (0-0.5); Lymphocytes Absolute Auto 2.23 K/mm3 (0.9-3.2); Lymphocytes Percent Auto 37.4 % (18.3-44.2); Mean Corpuscular HGB Conc 32.5 g/dl (32-36); Mean Corpuscular Hemoglobin 30.4 pg (26-34); Mean Corpuscular Volume 93.5 fl (80-100); Mean Platelet Volume 8.6 fl (7.4-10.4); Monocytes Absolute Auto 0.5 K/mm3 (0.1-0.6); Neutrophils Percent Auto 49.4 % (45.5-73.1); Platelet Count Result 265 k/mm3 (150-375); Red Blood Count 4.28 M/mm3 (4.2-5.4); Red Cell Distribution Width 12.9 % (11.5-14.5)
[2024-08-16 16:56] LABS: Alanine Aminotransferase 45 U/L (6-35); Alkaline Phosphatase 89 U/L (38-126); Anion Gap 10 mmol/L (4-12); Aspartate Amino Transferase 54 U/L (14-36); Bilirubin,Total 0.3 mg/dL (0.2-1.3); Blood Urea Nitrogen 17 mg/dL (7-17); Calcium 10.1 mg/dL (8.4-10.2); Carbon Dioxide 28 mmol/L (22-30); Chloride 102 mmol/L (98-107); Estimated Glomerular Filt Rate > 60; Glucose 113 mg/dL (65-110); Sodium 140 mmol/L (137-145)
[2024-08-16 22:07] LABS: Kit Draw Collected
[2024-08-18 02:09] LABS: CA 15-3 12 U/mL (<32)
== END 2024-08-16 15:39 | disposition home or self-care (01) ==
PROVIDERS: PCP Internal Medicine; Visit Provider Internal Medicine Hematology & Oncology
DX: C50.512 Malignant neoplasm of lower-outer quadrant of left female breast (principal); Z17.0 Estrogen receptor positive status [ER+]
CPT/HCPCS: 36415; 80053; 85025; 86300